=== PATIENT | female | born 1985 | race American Indian/Alaskan Native ===

== ENCOUNTER 2016-10-05 17:43 | Emergency (ER) | payer MEDICAID ==
--- NOTE | 2016-10-05 19:36 | Emergency Department Report ---
ED Female HPI - General Chief complaint: Urogenital-Female Stated complaint: ABD PAIN Time Seen by Provider: 10/05/16 19:21 Source: patient Mode of arrival: Ambulatory Limitations: No Limitations - History of Present Illness Initial comments: This is a 30-year-old female patient came in with abdominal pain and nausea. She reports that she is having pain in her pelvic area, urinary frequency and possibly UTI and this is been going on for 2 days. Her primary care doctor is Dr. Kwesi Bradshaw. Patient said that she is having clear vaginal discharge She denies any bleeding. Eyes any back pain. He says she's not concerned about STDs. She denies any fever or chills. MD Complaint: vaginal discharge, pelvic pain Onset/Timin -: days(s) Location: other (pelvic) Radiation: non-radiating Severity: mild Severity scale (0 -10): 6 Quality: cramping Consistency: intermittent Improves with: none Worsens with: none Are you Now?: No Last Menstrual Period: 09/21/16 EDC: 06/28/17 Associated Symptoms: vaginal discharge, abdominal pain, nausea/vomiting. denies : vaginal bleeding, fever/chills, headaches, loss of appetite, rash, seizure, shortness of breath, syncope, weakness - Related Data Sexually active: No Home Medications Medication Instructions Recorded Confirmed Last Taken ALBUTEROL NEB's [Proventil 0.083% 2.5 mg IH TID PRN 10/24/14 10/24/14 Unknown NEBS] Ferrous Sulfate [Feosol 325 MG tab] 325 mg PO QDAY 10/24/14 10/24/14 Unknown traMADol [Ultram 50 MG tab] 50 mg PO Q6HR PRN 10/24/14 10/24/14 Unknown Previous Rx's Medication Instructions Recorded Last Taken Type ALBUTEROL Inhaler [ProAir HFA 2 puff IH QID PRN #1 inha 04/10/15 Unknown Rx Inhaler] Azithromycin [Zithromax Z-ARIA] 250 mg PO DAILY #1 pkg 04/10/15 Unknown Rx Fluticasone/Salmeterol [Advair 1 each IH QDAY #1 disk.w.dev 04/10/15 Unknown Rx Diskus 250-50 mcg] methylPREDNISolone [Medrol Dose 4 mg PO QAM #1 pack 04/10/15 Unknown Rx Aria] Cetirizine HCl [ZyrTEC] 10 mg PO DAILY PRN #20 capsule 06/24/15 Unknown Rx Prednisone [predniSONE 10 mg 10 mg PO .TAPER #1 tab.ds.pk 06/24/15 Unknown Rx (6-Day Pack, 21 Tabs)] Naproxen [Naprosyn] 500 mg PO BID PRN #10 tablet 10/05/16 Unknown Rx Allergies Allergy/AdvReac Type Severity Reaction Status Date / Time No Known Allergies Allergy Verified 04/10/15 10:59 ED Review of Systems ROS: Stated complaint: ABD PAIN Other details as noted in HPI Comment: All other systems reviewed and negative Constitutional: denies: chills, fever ENT: denies: throat pain Respiratory: no symptoms reported Cardiovascular: denies: chest pain, palpitations, edema, syncope Gastrointestinal: abdominal pain, nausea. denies: vomiting, diarrhea, constipation, hematemesis, melena, hematochezia Genitourinary: frequency, discharge. denies: urgency, dysuria, hematuria, abnormal menses, dyspareunia Musculoskeletal: denies: back pain, joint swelling, arthralgia, myalgia Skin: denies: rash Neurological: denies: headache, numbness, paresthesias, abnormal gait, vertigo ED Past Medical Hx - Past Medical History Previous Medical History?: Yes Hx Asthma: Yes Additional medical history: Vaginal delivery x 2, PID - Surgical History Past Surgical History?: No - Family History Family history: hypertension - Social History Smoking Status: Never Smoker Substance Use Type: Non Opiate Pain - Medications Home Medications: Home Medications Medication Instructions Recorded Confirmed Last Taken Type ALBUTEROL NEB's [Proventil 0.083% 2.5 mg IH TID PRN 10/24/14 10/24/14 Unknown History NEBS] Ferrous Sulfate [Feosol 325 MG tab] 325 mg PO QDAY 10/24/14 10/24/14 Unknown History traMADol [Ultram 50 MG tab] 50 mg PO Q6HR PRN 10/24/14 10/24/14 Unknown History ALBUTEROL Inhaler [ProAir HFA 2 puff IH QID PRN #1 inha 04/10/15 Unknown Rx Inhaler] Azithromycin [Zithromax Z-ARIA] 250 mg PO DAILY #1 pkg 04/10/15 Unknown Rx Fluticasone/Salmeterol [Advair 1 each IH QDAY #1 disk.w.dev 04/10/15 Unknown Rx Diskus 250-50 mcg] methylPREDNISolone [Medrol Dose 4 mg PO QAM #1 pack 04/10/15 Unknown Rx Aria] Cetirizine HCl [ZyrTEC] 10 mg PO DAILY PRN #20 capsule 06/24/15 Unknown Rx Prednisone [predniSONE 10 mg 10 mg PO .TAPER #1 tab.ds.pk 06/24/15 Unknown Rx (6-Day Pack, 21 Tabs)] Naproxen [Naprosyn] 500 mg PO BID PRN #10 tablet 10/05/16 Unknown Rx ED Physical Exam - General Limitations: No Limitations General appearance: alert, in no apparent distress - Head Head exam: Present: atraumatic, normocephalic, normal inspection - Eye Eye exam: Present: normal appearance, PERRL, EOMI. Absent: periorbital swelling , periorbital tenderness Pupils: Present: normal accommodation - ENT ENT exam: Present: normal exam, normal orophraynx, mucous membranes moist, TM's normal bilaterally, normal external ear exam - Neck Neck exam: Present: normal inspection, full ROM. Absent: tenderness, lymphadenopathy - Respiratory Respiratory exam: Present: normal lung sounds bilaterally. Absent: respiratory distress, wheezes, rales, rhonchi, stridor, chest wall tenderness - Cardiovascular Cardiovascular Exam: Present: normal rhythm, tachycardia, normal heart sounds - GI/Abdominal GI/Abdominal exam: Present: soft, normal bowel sounds. Absent: distended, tenderness, guarding, rebound, rigid - External exam: Present: normal external exam Speculum exam: Present: normal speculum exam, vaginal discharge Bi-manual exam: Present: normal bi-manual exam. Absent: cervical motion tendernes, adnexal tenderness, adnexal mass, uterine enlargement, uterine tenderness - Extremities Exam Extremities exam: Present: normal inspection, full ROM, normal capillary refill. Absent: tenderness, pedal edema, joint swelling - Back Exam Back exam: Present: normal inspection, full ROM. Absent: tenderness, CVA tenderness (R), CVA tenderness (L), muscle spasm, paraspinal tenderness, vertebral tenderness, rash noted - Neurological Exam Neurological exam: Present: alert, oriented X3, normal gait, reflexes normal. Absent: motor sensory deficit - Psychiatric Psychiatric exam: Present: normal affect, normal mood - Skin Skin exam: Present: warm, dry, intact, normal color. Absent: rash ED Course Vital Signs 10/05/16 17:54 Temperature 98.6 F Pulse Rate 105 H Respiratory 20 Rate Blood Pressure 123/73 O2 Sat by Pulse 100 Oximetry Vital Signs 10/05/16 10/05/16 17:54 23:35 Temperature 98.6 F Pulse Rate 105 H 91 H Respiratory 20 18 Rate Blood Pressure 123/73 Blood Pressure 108/68 [Left] O2 Sat by Pulse 100 98 Oximetry - Reevaluation(s) Reevaluation #1: 10/05/16 21:26 Patient here with complaint of pelvic pain. Wet prep revealed no clue cells, no trichomonas or yeast cells. Patient does not want to be treated empirically for STD she wants to wait until her test comes back because she says she is not sexually active over the past 3 months. Patient awaiting in pelvic ultrasound. ED Medical Decision Making - Lab Data Result diagrams: 10/05/16 19:48 10/05/16 19:48 Lab Results 10/05/16 10/05/16 10/05/16 Range/Units 19:09 19:48 19:48 WBC 8.7 (4.5-11.0) K/mm3 RBC 4.59 (3.65-5.03) M/mm3 Hgb 11.3 (10.1-14.3) gm/dl Hct 34.3 (30.3-42.9) % MCV 75 L (79-97) fl MCH 25 L (28-32) pg MCHC 33 (30-34) % RDW 17.6 H (13.2-15.2) % Plt Count 305 (140-440) K/mm3 Lymph % (Auto) 27.9 (13.4-35.0) % Cass % (Auto) 7.5 H (0.0-7.3) % Eos % (Auto) 2.9 (0.0-4.3) % Baso % (Auto) 0.7 (0.0-1.8) % Lymph # 2.4 (1.2-5.4) K/mm3 Cass # 0.7 (0.0-0.8) K/mm3 Eos # 0.3 (0.0-0.4) K/mm3 Baso # 0.1 (0.0-0.1) K/mm3 Seg Neutrophils % 61.0 (40.0-70.0) % Seg Neutrophils # 5.3 (1.8-7.7) K/mm3 Sodium 141 (137-145) mmol/L Potassium 3.7 (3.6-5.0) mmol/L Chloride 103.2 (98-107) mmol/L Carbon Dioxide 25 (22-30) mmol/L Anion Gap 17 mmol/L BUN 9 (7-17) mg/dL Creatinine 0.8 (0.7-1.2) mg/dL Estimated GFR > 60 ml/min BUN/Creatinine Ratio 11.25 % Glucose 103 H (65-100) mg/dL Calcium 8.6 (8.4-10.2) mg/dL Lipase (13-60) units/L Urine Color Yellow (Yellow) Urine Turbidity Clear (Clear) Urine pH 5.0 (5.0-7.0) Ur Specific [place] 1.023 (1.003-1.030) Urine Protein 30 mg/dl (Negative) mg/dL Urine Glucose (UA) Neg (Negative) mg/dL Urine Ketones Neg (Negative) mg/dL Urine Blood Mod (Negative) Urine Nitrite Neg (Negative) Ur Reducing Substances Not Reportable Urine Bilirubin Neg (Negative) Urine Ictotest Not Reportable Urine Urobilinogen < 2.0 (<2.0) mg/dL Ur Leukocyte Esterase Neg (Negative) Urine WBC (Auto) 3.0 (0.0-6.0) /HPF Urine RBC (Auto) 4.0 (0.0-6.0) /HPF U Epithel Cells (Auto) 10.0 (0-13.0) /HPF Urine Mucus 2+ /HPF Urine HCG, Qual Negative (Negative) 10/05/16 Range/Units 19:48 WBC (4.5-11.0) K/mm3 RBC (3.65-5.03) M/mm3 Hgb (10.1-14.3) gm/dl Hct (30.3-42.9) % MCV (79-97) fl MCH (28-32) pg MCHC (30-34) % RDW (13.2-15.2) % Plt Count (140-440) K/mm3 Lymph % (Auto) (13.4-35.0) % Cass % (Auto) (0.0-7.3) % Eos % (Auto) (0.0-4.3) % Baso % (Auto) (0.0-1.8) % Lymph # (1.2-5.4) K/mm3 Cass # (0.0-0.8) K/mm3 Eos # (0.0-0.4) K/mm3 Baso # (0.0-0.1) K/mm3 Seg Neutrophils % (40.0-70.0) % Seg Neutrophils # (1.8-7.7) K/mm3 Sodium (137-145) mmol/L Potassium (3.6-5.0) mmol/L Chloride (98-107) mmol/L Carbon Dioxide (22-30) mmol/L Anion Gap mmol/L BUN (7-17) mg/dL Creatinine (0.7-1.2) mg/dL Estimated GFR ml/min BUN/Creatinine Ratio % Glucose (65-100) mg/dL Calcium (8.4-10.2) mg/dL Lipase 24 (13-60) units/L Urine Color (Yellow) Urine Turbidity (Clear) Urine pH (5.0-7.0) Ur Specific [place] (1.003-1.030) Urine Protein (Negative) mg/dL Urine Glucose (UA) (Negative) mg/dL Urine Ketones (Negative) mg/dL Urine Blood (Negative) Urine Nitrite (Negative) Ur Reducing Substances Urine Bilirubin (Negative) Urine Ictotest Urine Urobilinogen (<2.0) mg/dL Ur Leukocyte Esterase (Negative) Urine WBC (Auto) (0.0-6.0) /HPF Urine RBC (Auto) (0.0-6.0) /HPF U Epithel Cells (Auto) (0-13.0) /HPF Urine Mucus /HPF Urine HCG, Qual (Negative) Wet prep reveal no trichomoniasis, no yeast or clue cells Gonorrhea and chlamydia test is pending - Radiology Data Radiology results: report reviewed Pelvic ultrasound revealed left and right ovarian functional cysts otherwise unremarkable pelvic ultrasound - Medical Decision Making ED course: An here presented complaining of pelvic pain that started 2 days ago. She reports that she thought she had a urinary tract infection. Urinalysis negative for infection and . Pelvic ultrasound revealed cysts on both ovaries otherwise unremarkable pelvic ultrasound. This was communicated to patient and I told her she needs to follow-up with her primary care physician and possible [facility]. She has a primary care physician who is Dr. Kwesi Bradshaw. I instructed her to call to schedule an appointment for physical exam. Patient discharged home with prescription for naproxen. I also discussed with her wet prep results and told her that her gonorrhea and chlamydia tests will be back within 5 days. Patient has no concerns for STD. Critical care attestation.: If time is entered above; I have spent that time in minutes in the direct care of this critically ill patient, excluding procedure time. ED Disposition Clinical Impression: Pelvic pain, Ovarian cyst Disposition: TO HOME OR SELFCARE Is pt being admited?: No Does the pt Need Aspirin: No Condition: Stable Instructions: Abdominal Pain (ED), Ovarian Cyst (ED) Additional Instructions: Please follow-up with your primary care physician call tomorrow to schedule an appointment Please take naproxen as needed for pain. See referral to [facility] and call to schedule an appointment. Prescriptions: Naproxen [Naprosyn] 500 mg PO BID PRN #10 tablet PRN Reason: Pain Referrals: PRIMARY CARE, [Primary Care Provider] - 2-3 Days FREDDIE SONI MD [Staff Physician] - 2-3 Days Forms: Work/School Release Form(ED)
[2016-10-05 19:38] LABS: Bilirubin,Urine NEG (Negative); Blood,Urine MOD (Negative); Ketones,Urine NEG (Negative); Leukocyte Esterase,Urine NEG (Negative); Mucus,Urine 2+ /HPF; Nitrite,Urine NEG (Negative); Urobilinogen,Urine < 2.0 mg/dL (<2.0)
[2016-10-05 19:57] LABS: Basophils % (Auto) 0.7 % (0.0-1.8); Eosinophils % (Auto) 2.9 % (0.0-4.3); Hematocrit 34.3 % (30.3-42.9); Hemoglobin 11.3 gm/dl (10.1-14.3); Mean Corpuscular HGB Conc 33 % (30-34); Mean Corpuscular Volume 75 fl (79-97); Platelet Count 305 K/mm3 (140-440); Red Blood Count 4.59 M/mm3 (3.65-5.03); Red Cell Distribution Width 17.6 % (13.2-15.2); White Blood Count 8.7 K/mm3 (4.5-11.0)
[2016-10-05 19:58] LABS: Mean Corpuscular Hemoglobin 25 pg (28-32)
[2016-10-05 20:17] LABS: Anion Gap 17 mmol/L; BUN/Creatinine Ratio 11.25; Blood Urea Nitrogen 9 mg/dL (7-17); Calcium 8.6 mg/dL (8.4-10.2); Carbon Dioxide 25 mmol/L (22-30); Chloride 103.2 mmol/L (98-107); Glucose 103 mg/dL (65-100); Potassium 3.7 mmol/L (3.6-5.0); Sodium 141 mmol/L (137-145)
--- NOTE | 2016-10-05 22:33 | Ultrasound Report ---
FINAL REPORT EXAM: US PELVIC COMPLETE HISTORY: pelvic pain COMPARISONS: None. FINDINGS: Transabdominal grayscale and color doppler ultrasound evaluation of the pelvis Anteverted uterus measures 8.2 x 6 x 6.2 cm and demonstrates myometrial echotexture within normal limits and homogeneous endometrium approximately 10 millimeters in thickness. No significant free fluid in the pelvis. Ovaries demonstrate normal size and echotexture and measures 3.2 x 2.5 x 2.1 cm on the right and 3 x 2 x 3.4 cm on the left. Functional cysts are seen within both ovaries. IMPRESSION: Unremarkable pelvic ultrasound.
[2016-10-05 23:36] VITALS: BP 108/68
== END 2016-10-05 23:38 | disposition home or self-care (01) ==
LOC: ED 17:43
DX: N83.202 Unspecified ovarian cyst, left side (principal); N83.201 Unspecified ovarian cyst, right side; J45.909 Unspecified asthma, uncomplicated
CPT/HCPCS: 36415; 76856; 80048; 81001; 81025; 83690; 85025; 87210; 87591; 99284

== ENCOUNTER 2017-01-22 17:15 | Emergency (ER) | payer MEDICAID ==
[2017-01-22 17:22] VITALS: BP 123/82
--- NOTE | 2017-01-22 22:45 | Emergency Department Report ---
- General Chief complaint: Skin/Abscess/Foreign Body Stated complaint: BOIL IN GROIN Time Seen by Provider: 01/22/17 22:40 Source: patient Mode of arrival: Ambulatory Limitations: No Limitations - History of Present Illness Initial comments: 31 YO FEMALE WITH VAGINAL ABSCESS THAT BEGAN ONE WEEK AGO AFTER SHAVING. PT NOW STATES THAT IT POPPED SINCE SHE WAS SITTING AND WAITING TO BE SEEN. SHE NO LONGER WANTS AN I AND D OF THIS ABSCESS. complaint: abscess/boil -: Sudden, week(s) (1) Tetanus Up to Date: unsure Location: genitals Severity scale (0 -10): 7 Quality: aching Consistency: constant Improves with: immobilization Worsens with: movement Associated symptoms: other (DIFFICULTY WALKING) Treatments Prior to Arrival: none - Related Data Home Medications Medication Instructions Recorded Confirmed Last Taken ALBUTEROL NEB's [Proventil 0.083% 2.5 mg IH TID PRN 10/24/14 10/24/14 Unknown NEBS] Ferrous Sulfate [Feosol 325 MG tab] 325 mg PO QDAY 10/24/14 10/24/14 Unknown traMADol [Ultram 50 MG tab] 50 mg PO Q6HR PRN 10/24/14 10/24/14 Unknown Previous Rx's Medication Instructions Recorded Last Taken Type ALBUTEROL Inhaler [ProAir HFA 2 puff IH QID PRN #1 inha 04/10/15 Unknown Rx Inhaler] Azithromycin [Zithromax Z-ARIA] 250 mg PO DAILY #1 pkg 04/10/15 Unknown Rx Fluticasone/Salmeterol [Advair 1 each IH QDAY #1 disk.w.dev 04/10/15 Unknown Rx Diskus 250-50 mcg] methylPREDNISolone [Medrol Dose 4 mg PO QAM #1 pack 04/10/15 Unknown Rx Aria] Cetirizine HCl [ZyrTEC] 10 mg PO DAILY PRN #20 capsule 06/24/15 Unknown Rx Prednisone [predniSONE 10 mg 10 mg PO .TAPER #1 tab.ds.pk 06/24/15 Unknown Rx (6-Day Pack, 21 Tabs)] Naproxen [Naprosyn] 500 mg PO BID PRN #10 tablet 10/05/16 Unknown Rx Sulfamethoxazole/Trimethoprim 1 each PO BID #14 tablet 01/22/17 Unknown Rx [Bactrim Ds Tablet] oxyCODONE /ACETAMINOPHEN [Percocet 1 tab PO Q6HR PRN #14 tablet 01/22/17 Unknown Rx 5/325] Allergies Allergy/AdvReac Type Severity Reaction Status Date / Time No Known Allergies Allergy Verified 01/22/17 17:18 Abscess Boil HPI - HPI Chief Complaint: Skin/Abscess/Foreign Body Stated Complaint: BOIL IN GROIN Time Seen by Provider: 01/22/17 22:40 Duration: 1 Week Location: Other (VAGINAL) History: Yes Pain, Yes Purulent Drainage, No Fever, No Numbness, No Foreign Body , No Previous History, No Insect Bite Home Medications: Home Medications Medication Instructions Recorded Confirmed Last Taken ALBUTEROL NEB's [Proventil 0.083% 2.5 mg IH TID PRN 10/24/14 10/24/14 Unknown NEBS] Ferrous Sulfate [Feosol 325 MG tab] 325 mg PO QDAY 10/24/14 10/24/14 Unknown traMADol [Ultram 50 MG tab] 50 mg PO Q6HR PRN 10/24/14 10/24/14 Unknown Previous Rx's Medication Instructions Recorded Last Taken Type ALBUTEROL Inhaler [ProAir HFA 2 puff IH QID PRN #1 inha 04/10/15 Unknown Rx Inhaler] Azithromycin [Zithromax Z-ARIA] 250 mg PO DAILY #1 pkg 04/10/15 Unknown Rx Fluticasone/Salmeterol [Advair 1 each IH QDAY #1 disk.w.dev 04/10/15 Unknown Rx Diskus 250-50 mcg] methylPREDNISolone [Medrol Dose 4 mg PO QAM #1 pack 04/10/15 Unknown Rx Aria] Cetirizine HCl [ZyrTEC] 10 mg PO DAILY PRN #20 capsule 06/24/15 Unknown Rx Prednisone [predniSONE 10 mg 10 mg PO .TAPER #1 tab.ds.pk 06/24/15 Unknown Rx (6-Day Pack, 21 Tabs)] Naproxen [Naprosyn] 500 mg PO BID PRN #10 tablet 10/05/16 Unknown Rx Sulfamethoxazole/Trimethoprim 1 each PO BID #14 tablet 01/22/17 Unknown Rx [Bactrim Ds Tablet] oxyCODONE /ACETAMINOPHEN [Percocet 1 tab PO Q6HR PRN #14 tablet 01/22/17 Unknown Rx 5/325] Allergies/Adverse Reactions: Allergies Allergy/AdvReac Type Severity Reaction Status Date / Time No Known Allergies Allergy Verified 01/22/17 17:18 ED Review of Systems ROS: Stated complaint: BOIL IN GROIN Other details as noted in HPI Constitutional: denies: chills, fever Eyes: denies: eye pain, eye discharge, vision change ENT: denies: ear pain, throat pain Respiratory: denies: cough, shortness of breath, wheezing Cardiovascular: denies: chest pain, palpitations Endocrine: no symptoms reported Gastrointestinal: denies: abdominal pain, nausea, diarrhea Genitourinary: denies: urgency, dysuria, discharge Musculoskeletal: denies: back pain, joint swelling, arthralgia Skin: denies: rash, lesions Neurological: denies: headache, weakness, paresthesias Psychiatric: denies: anxiety, depression Hematological/Lymphatic: denies: easy bleeding, easy bruising ED Past Medical Hx - Past Medical History Hx Asthma: Yes Additional medical history: Vaginal delivery x 2, PID - Surgical History Past Surgical History?: No - Social History Smoking Status: Never Smoker Substance Use Type: None - Medications Home Medications: Home Medications Medication Instructions Recorded Confirmed Last Taken Type ALBUTEROL NEB's [Proventil 0.083% 2.5 mg IH TID PRN 10/24/14 10/24/14 Unknown History NEBS] Ferrous Sulfate [Feosol 325 MG tab] 325 mg PO QDAY 10/24/14 10/24/14 Unknown History traMADol [Ultram 50 MG tab] 50 mg PO Q6HR PRN 10/24/14 10/24/14 Unknown History ALBUTEROL Inhaler [ProAir HFA 2 puff IH QID PRN #1 inha 04/10/15 Unknown Rx Inhaler] Azithromycin [Zithromax Z-ARIA] 250 mg PO DAILY #1 pkg 04/10/15 Unknown Rx Fluticasone/Salmeterol [Advair 1 each IH QDAY #1 disk.w.dev 04/10/15 Unknown Rx Diskus 250-50 mcg] methylPREDNISolone [Medrol Dose 4 mg PO QAM #1 pack 04/10/15 Unknown Rx Aria] Cetirizine HCl [ZyrTEC] 10 mg PO DAILY PRN #20 capsule 06/24/15 Unknown Rx Prednisone [predniSONE 10 mg 10 mg PO .TAPER #1 tab.ds.pk 06/24/15 Unknown Rx (6-Day Pack, 21 Tabs)] Naproxen [Naprosyn] 500 mg PO BID PRN #10 tablet 10/05/16 Unknown Rx Sulfamethoxazole/Trimethoprim 1 each PO BID #14 tablet 01/22/17 Unknown Rx [Bactrim Ds Tablet] oxyCODONE /ACETAMINOPHEN [Percocet 1 tab PO Q6HR PRN #14 tablet 01/22/17 Unknown Rx 5/325] ED Physical Exam - General Limitations: No Limitations General appearance: alert, in no apparent distress - Head Head exam: Present: atraumatic, normocephalic - Eye Eye exam: Present: normal appearance - ENT ENT exam: Present: mucous membranes moist - Neck Neck exam: Present: normal inspection - Respiratory Respiratory exam: Present: normal lung sounds bilaterally. Absent: respiratory distress, wheezes - Cardiovascular Cardiovascular Exam: Present: regular rate, normal rhythm. Absent: systolic murmur, diastolic murmur, rubs, gallop - GI/Abdominal GI/Abdominal exam: Present: soft, normal bowel sounds. Absent: distended, tenderness, guarding, rebound - Rectal Rectal exam: Present: deferred - External exam: Present: swelling (LEFT LABIA MAJORA SWELLING) - Extremities Exam Extremities exam: Present: normal inspection, full ROM - Back Exam Back exam: Present: normal inspection - Neurological Exam Neurological exam: Present: alert, oriented X3 - Psychiatric Psychiatric exam: Present: normal affect, normal mood - Skin Skin exam: Present: warm, dry, intact, normal color. Absent: rash ED Course Vital Signs 01/22/17 17:18 Temperature 98.5 F Pulse Rate 106 H Respiratory 18 Rate Blood Pressure 123/82 O2 Sat by Pulse 97 Oximetry ED Medical Decision Making - Medical Decision Making LEFT LABIAL ABSCESS OPEN AND DRAINING PUS, I HELP TO SQUEEZE THE ABSCESS TO REMOVE MORE PUS , PT GIVEN GAUZE . SHE WISHES NOT TO HAVE THE I AND D BECAUSE IT IS NOW DRAINING. Critical care attestation.: If time is entered above; I have spent that time in minutes in the direct care of this critically ill patient, excluding procedure time. ED Disposition Clinical Impression: Left genital labial abscess Disposition: DC- TO HOME OR SELFCARE Is pt being admited?: No Does the pt Need Aspirin: No Condition: Stable Instructions: Abscess (ED) Additional Instructions: PLEASE TAKE WARM BATHS WITH EPSOM SALT AND USE WARM COMPRESSED TO THE ABSCESS SO THAT IT WILL CONTINUE DRAINING Prescriptions: oxyCODONE /ACETAMINOPHEN [Percocet 5/325] 1 tab PO Q6HR PRN #14 tablet PRN Reason: Pain Sulfamethoxazole/Trimethoprim [Bactrim Ds Tablet] 1 each PO BID #14 tablet Referrals: ZACKERY TOWNSEND MD [Primary Care Provider] - 3-5 Days
[2017-01-22] MEDS ORDERED: TORADOL IM ONE (23:07)
[2017-01-22] MEDS ORDERED: LIDOCAINE VISCOUS 2% PO ONE (23:10)
== END 2017-01-22 23:20 | disposition home or self-care (01) ==
LOC: ED 17:15
DX: N76.4 Abscess of vulva (principal); J45.909 Unspecified asthma, uncomplicated
CPT/HCPCS: 96372; 99282; J1885

== ENCOUNTER 2017-03-01 07:25 | Emergency (ER) | payer MEDICAID ==
[2017-03-01 07:44] VITALS: BP 131/72
[2017-03-01] MEDS: DELTASONE PO ONE (10:17)
--- NOTE | 2017-03-01 10:20 | Emergency Department Report ---
HPI - General Chief Complaint: Upper Respiratory Infection Time Seen by Provider: 03/01/17 10:10 - HPI HPI: She is a 31-year-old female who presents to ED complaining of asthma exacerbation that happened acutely today. She states she is out of her medication and took a breathing treatment that belonged to her son which helped give her some relief. Patient came in to the ED. She also admits mild intermittent coughing. Patient states pain is worsened by coughing. She denies fevers/chills/nausea/vomiting abdominal pain. ED Past Medical Hx - Past Medical History Hx Asthma: Yes Additional medical history: Vaginal delivery x 2, PID - Surgical History Past Surgical History?: No - Social History Smoking Status: Never Smoker Substance Use Type: None - Medications Home Medications: Home Medications Medication Instructions Recorded Confirmed Last Taken Type Ferrous Sulfate [Feosol 325 MG tab] 325 mg PO QDAY 10/24/14 10/24/14 Unknown History traMADol [Ultram 50 MG tab] 50 mg PO Q6HR PRN 10/24/14 10/24/14 Unknown History Azithromycin [Zithromax Z-YANNICK] 250 mg PO DAILY #1 pkg 04/10/15 Unknown Rx methylPREDNISolone [Medrol Dose 4 mg PO QAM #1 pack 04/10/15 Unknown Rx Yannick] Cetirizine HCl [ZyrTEC] 10 mg PO DAILY PRN #20 capsule 06/24/15 Unknown Rx Prednisone [predniSONE 10 mg 10 mg PO .TAPER #1 tab.ds.pk 06/24/15 Unknown Rx (6-Day Pack, 21 Tabs)] Naproxen [Naprosyn] 500 mg PO BID PRN #10 tablet 10/05/16 Unknown Rx Sulfamethoxazole/Trimethoprim 1 each PO BID #14 tablet 01/22/17 Unknown Rx [Bactrim Ds Tablet] oxyCODONE /ACETAMINOPHEN [Percocet 1 tab PO Q6HR PRN #14 tablet 01/22/17 Unknown Rx 5/325] ALBUTEROL Inhaler [ProAir HFA 2 puff IH QID PRN #1 inha 03/01/17 Unknown Rx Inhaler] ALBUTEROL NEB's [Proventil 0.083% 2.5 mg IH BID PRN #1 pack 03/01/17 Unknown Rx NEBS] Fluticasone/Salmeterol [Advair 1 each IH QDAY #1 disk.w.dev 03/01/17 Unknown Rx Diskus 250-50 mcg] guaiFENesin [Robitussin] 200 mg PO Q6HR #24 tablet 03/01/17 Unknown Rx predniSONE [Deltasone] 20 mg PO QDAY #4 tab 03/01/17 Unknown Rx ED Review of Systems ROS: Stated complaint: CHEST PAIN/SOB Other details as noted in HPI Constitutional: denies: chills, fever Eyes: denies: eye pain, eye discharge, vision change ENT: denies: ear pain, throat pain Respiratory: denies: cough, shortness of breath, wheezing Cardiovascular: denies: chest pain, palpitations Endocrine: no symptoms reported Gastrointestinal: denies: abdominal pain, nausea, diarrhea Genitourinary: denies: urgency, dysuria, frequency, discharge Musculoskeletal: denies: back pain, joint swelling, arthralgia Skin: denies: rash, lesions Neurological: denies: headache, weakness, paresthesias Psychiatric: denies: anxiety, depression Hematological/Lymphatic: denies: easy bleeding, easy bruising Physical Exam - Physical Exam Vital Signs: Vital Signs 03/01/17 07:38 Temperature 98.0 F Pulse Rate 98 H Respiratory 16 Rate Blood Pressure 131/72 O2 Sat by Pulse 99 Oximetry Physical Exam: GENERAL: Alert and oriented x3, no apparent distress, Normal Gait, atraumatic. HEAD: Head is normocephalic and a-traumatic. EYES: Extra ocular muscles are intact. Pupils are equal, round, and reactive to light and accommodation. EARS: symetrical, atraumatic, non tender, ear canal clear and moderate cerumen, tympanic membrance non inflamed. gross auditory nml bilaterally. NOSE: Nose symetrical, Nontender,Nares appeared normal. MOUTH:Mouth is well hydrated and without lesions. Tonsils nonerythematous or swollen, Uvula midline, Tongue not elevated. Mucous membranes are moist. Posterior pharynx clear, no exudate or lesions. Patent airways. NECK: Supple. Non edematous, No lymphadenopathy or thyromegaly. LUNGS: Symetrical with respiration, No wheezing, no rales or crackles, CTAB. Use of assessory muscles HEART: S1, S2 present, regular rate and rhythm without murmur, no rubs, no gallops. Non tender to palpation SKIN: Warm and dry, No lesions, No ulceration or induration present. ED Course Vital Signs 03/01/17 07:38 Temperature 98.0 F Pulse Rate 98 H Respiratory 16 Rate Blood Pressure 131/72 O2 Sat by Pulse 99 Oximetry ED Medical Decision Making - Radiology Data Radiology results: report reviewed, image reviewed cc: ANDREW HAAS Fluoro Time In Minutes: ROUTINE CHEST, TWO VIEWS: Cough, SOB. PA and lateral views demonstrate the heart and mediastinal contour to be of normal size and shape. The lungs are clear and fully expanded and the soft tissues and bony structures are normal. IMPRESSION: Normal study. Transcribed By: EMILI Dictated By: AMBER KHAN MD Electronically Authenticated By: AMBER KHAN MD Signed Date/Time: 03/01/17 1122 - Medical Decision Making 31-year-old female presents with asthma exacerbation. ED course: Patient received a breathing treatment in ED, prednisone, cough suppressant Patient states different much better after receiving treatment. Vital signs normalized patient is in no acute distress or respiratory distress. I discussed the patient that i will refill of her medications. Discussed the patient will follow up with primary care physician. I discussed the patient's symptoms worsen or should develop new symptoms to return to ED. Critical care attestation.: If time is entered above; I have spent that time in minutes in the direct care of this critically ill patient, excluding procedure time. ED Disposition Clinical Impression: Asthma exacerbation Qualifiers: Asthma severity: mild Asthma persistence: intermittent Qualified Code(s): J45.21 - Mild intermittent asthma with (acute) exacerbation Disposition: DC-01 TO HOME OR SELFCARE Is pt being admited?: No Does the pt Need Aspirin: No Condition: Stable Instructions: Asthma (ED), Acute Bronchitis (ED), Bronchospasm (ED) Additional Instructions: Follow-up with Primary care Physician. Take medication as prescribed. If worsening symptoms or you get new symptoms please return to ED immediately Prescriptions: ALBUTEROL Inhaler [ProAir HFA Inhaler] 2 puff IH QID PRN #1 inha PRN Reason: Shortness Of Breath ALBUTEROL NEB's [Proventil 0.083% NEBS] 2.5 mg IH BID PRN #1 pack PRN Reason: Cough Fluticasone/Salmeterol [Advair Diskus 250-50 mcg] 1 each IH QDAY #1 disk.w.dev guaiFENesin [Robitussin] 200 mg PO Q6HR #24 tablet predniSONE [Deltasone] 20 mg PO QDAY #4 tab Referrals: PRIMARY CARE, [Primary Care Provider] - 3-5 Days [facility] [Outside] - 3-5 Days [facility] [Outside] - 3-5 Days [facility] [Outside] - 3-5 Days Forms: Accompanied Note, Work/School Release Form(ED) Time of Disposition: 11:37
[2017-03-01] MEDS: PROVENTIL IH ONE (10:40)
--- NOTE | 2017-03-01 11:38 | XRay Report ---
ROUTINE CHEST, TWO VIEWS: Cough, SOB. PA and lateral views demonstrate the heart and mediastinal contour to be of normal size and shape. The lungs are clear and fully expanded and the soft tissues and bony structures are normal. IMPRESSION: Normal study.
== END 2017-03-01 12:05 | disposition home or self-care (01) ==
LOC: ED 07:25
DX: J45.21 Mild intermittent asthma with (acute) exacerbation (principal)
CPT/HCPCS: 71020; 93005; 93010; 94640; 99283; J7512

== ENCOUNTER 2017-08-06 18:51 | Emergency (ER) | payer MEDICAID ==
[2017-08-06 19:49] LABS: Basophils # (Auto) 0.1 K/mm3 (0.0-0.1); Basophils % (Auto) 1.2 % (0.0-1.8); Eosinophils # (Auto) 0.3 K/mm3 (0.0-0.4); Eosinophils % (Auto) 3.5 % (0.0-4.3); Hematocrit 34.6 % (30.3-42.9); Hemoglobin 11.6 gm/dl (10.1-14.3); Lymphocytes # (Auto) 2.8 K/mm3 (1.2-5.4); Lymphocytes % (Auto) 31.1 % (13.4-35.0); Mean Corpuscular HGB Conc 34 % (30-34); Mean Corpuscular Volume 71 fl (79-97); Monocytes # (Auto) 0.7 K/mm3 (0.0-0.8); Monocytes % (Auto) 7.8 % (0.0-7.3); Platelet Count 325 K/mm3 (140-440); Red Blood Count 4.88 M/mm3 (3.65-5.03); Red Cell Distribution Width 18.3 % (13.2-15.2)
[2017-08-06 19:56] LABS: Mean Corpuscular Hemoglobin 24 pg (28-32)
[2017-08-06 19:59] LABS: Alanine Aminotransferase 10 units/L (7-56); Albumin 3.8 g/dL (3.9-5); BUN/Creatinine Ratio 15; Blood Urea Nitrogen 12 mg/dL (7-17); Calcium 8.3 mg/dL (8.4-10.2); Hemolysis Index 0
[2017-08-06 22:18] LABS: Bilirubin,Urine NEG (Negative); Blood,Urine MOD (Negative); Color,Urine Yellow (Yellow); Mucus,Urine FEW /HPF; Protein,Urine <15 mg/dL mg/dL (Negative); Urobilinogen,Urine < 2.0 mg/dL (<2.0)
--- NOTE | 2017-08-06 22:54 | Emergency Department Report ---
HPI - General Chief Complaint: Abdominal Pain Time Seen by Provider: 08/06/17 22:40 - HPI HPI: Room 4 The patient is a 31-year-old female presenting with chief complaint abdominal pain. The patient states that today she's had intermittent lower abdominal pain as aching in nature. The patient states she's had urinary urgency in addition to dysuria. Denies hematuria or fever. Patient denies vaginal discharge. Patient does admit to chills. Location: Lower abdomen Duration: Intermittent 8-9 days Quality: Aching Severity: Moderate Modifying factors: [see above] Context: [see above] Mode of transportation: [not driving] ED Past Medical Hx - Past Medical History Previous Medical History?: Yes Hx Asthma: Yes Additional medical history: Vaginal delivery x 2, PID. laparoscopy - Surgical History Past Surgical History?: No - Family History Family history: no significant - Social History Smoking Status: Never Smoker Substance Use Type: None (denies illicit drug use) - Medications Home Medications: Home Medications Medication Instructions Recorded Confirmed Last Taken Type Ferrous Sulfate [Feosol 325 MG tab] 325 mg PO QDAY 10/24/14 10/24/14 Unknown History traMADol [Ultram 50 MG tab] 50 mg PO Q6HR PRN 10/24/14 10/24/14 Unknown History Azithromycin [Zithromax Z-ARIA] 250 mg PO DAILY #1 pkg 04/10/15 Unknown Rx methylPREDNISolone [Medrol Dose 4 mg PO QAM #1 pack 04/10/15 Unknown Rx Aria] Cetirizine HCl [ZyrTEC] 10 mg PO DAILY PRN #20 capsule 06/24/15 Unknown Rx Prednisone [predniSONE 10 mg 10 mg PO .TAPER #1 tab.ds.pk 06/24/15 Unknown Rx (6-Day Pack, 21 Tabs)] Naproxen [Naprosyn] 500 mg PO BID PRN #10 tablet 10/05/16 Unknown Rx Sulfamethoxazole/Trimethoprim 1 each PO BID #14 tablet 01/22/17 Unknown Rx [Bactrim Ds Tablet] oxyCODONE /ACETAMINOPHEN [Percocet 1 tab PO Q6HR PRN #14 tablet 01/22/17 Unknown Rx 5/325] ALBUTEROL Inhaler [ProAir HFA 2 puff IH QID PRN #1 inha 03/01/17 Unknown Rx Inhaler] ALBUTEROL NEB's [Proventil 0.083% 2.5 mg IH BID PRN #1 pack 03/01/17 Unknown Rx NEBS] Fluticasone/Salmeterol [Advair 1 each IH QDAY #1 disk.w.dev 03/01/17 Unknown Rx Diskus 250-50 mcg] guaiFENesin [Robitussin] 200 mg PO Q6HR #24 tablet 03/01/17 Unknown Rx predniSONE [Deltasone] 20 mg PO QDAY #4 tab 03/01/17 Unknown Rx Ciprofloxacin HCl [Ciprofloxacin 500 mg PO Q12H #14 tab 08/06/17 Unknown Rx TAB] Ibuprofen [Motrin 800 MG tab] 800 mg PO Q8HR PRN #20 tablet 08/06/17 Unknown Rx Phenazopyridine [Pyridium] 200 mg PO TID #6 tab 08/06/17 Unknown Rx traMADol [Ultram] 50 mg PO Q6HR PRN #10 tablet 08/06/17 Unknown Rx ED Review of Systems ROS: Stated complaint: ABDOMINAL PAIN Other details as noted in HPI Constitutional: chills. denies: fever Gastrointestinal: abdominal pain Genitourinary: urgency, dysuria. denies: hematuria, discharge Musculoskeletal: denies: back pain Physical Exam - Physical Exam Vital Signs: Vital Signs 08/06/17 19:28 Temperature 99 F Pulse Rate 87 Respiratory 18 Rate Blood Pressure 122/72 O2 Sat by Pulse 100 Oximetry Physical Exam: GENERAL: The patient is well-developed well-nourished female lying on stretcher not appearing to be in acute distress. [] HEENT: Normocephalic. Atraumatic. Extraocular motions are intact. Patient has moist mucous membranes. NECK: Supple. Trachea midline CHEST/LUNGS: Clear to auscultation. There is no respiratory distress noted. HEART/CARDIOVASCULAR: Regular. There is no tachycardia. There is no gallop rub or murmur. ABDOMEN: Abdomen is soft, and nontender to palpation in bilateral upper and lower quadrants. Patient with mild discomfort in the suprapubic region. There is no rebound.. Patient has normal bowel sounds. There is no abdominal distention. SKIN: There is no rash. There is no edema. There is no diaphoresis. NEURO: The patient is awake, alert, and oriented. The patient is cooperative. The patient has normal speech and gait MUSCULOSKELETAL: There is no CVA tenderness. There is no evidence of acute injury. ED Course Vital Signs 08/06/17 19:28 Temperature 99 F Pulse Rate 87 Respiratory 18 Rate Blood Pressure 122/72 O2 Sat by Pulse 100 Oximetry ED Medical Decision Making - Lab Data Result diagrams: 08/06/17 19:39 08/06/17 19:39 Laboratory Tests 08/06/17 08/06/17 08/06/17 19:39 19:39 21:39 WBC 8.9 RBC 4.88 Hgb 11.6 Hct 34.6 MCV 71 L MCH 24 L MCHC 34 RDW 18.3 H Plt Count 325 Lymph % (Auto) 31.1 [place] % (Auto) 7.8 H Eos % (Auto) 3.5 Baso % (Auto) 1.2 Lymph # 2.8 [place] # 0.7 Eos # 0.3 Baso # 0.1 Seg Neutrophils % 56.4 Seg Neutrophils # 5.0 Sodium 135 L Potassium 4.0 Chloride 99.6 Carbon Dioxide 23 Anion Gap 16 BUN 12 Creatinine 0.8 Estimated GFR > 60 BUN/Creatinine Ratio 15 Glucose 84 Calcium 8.3 L Total Bilirubin < 0.20 AST 15 ALT 10 Alkaline Phosphatase 79 Total Protein 7.5 Albumin 3.8 L Albumin/Globulin Ratio 1.0 Urine Color Yellow Urine Turbidity Clear Urine pH 5.0 Ur Specific [place] 1.021 Urine Protein <15 mg/dl Urine Glucose (UA) Neg Urine Ketones Neg Urine Blood Mod Urine Nitrite Neg Urine Bilirubin Neg Urine Urobilinogen < 2.0 Ur Leukocyte Esterase Mod Urine WBC (Auto) 14.0 H Urine RBC (Auto) 6.0 U Epithel Cells (Auto) 4.0 Urine Mucus Few - Differential Diagnosis UTI, pyelonephritis Critical care attestation.: If time is entered above; I have spent that time in minutes in the direct care of this critically ill patient, excluding procedure time. ED Disposition Clinical Impression: UTI (urinary tract infection), Acute abdominal pain Disposition: - TO HOME OR SELFCARE Is pt being admited?: No Does the pt Need Aspirin: No Condition: Stable Instructions: Abdominal Pain (ED), Dysuria (ED), Urinary Tract Infection in Women (ED) Additional Instructions: Return to the emergency department immediately should you develop worsening symptoms, fever, inability to tolerate food or liquid or any other concerns. Prescriptions: Ciprofloxacin HCl [Ciprofloxacin TAB] 500 mg PO Q12H #14 tab Ibuprofen [Motrin 800 MG tab] 800 mg PO Q8HR PRN #20 tablet PRN Reason: Pain Phenazopyridine [Pyridium] 200 mg PO TID #6 tab traMADol [Ultram] 50 mg PO Q6HR PRN #10 tablet PRN Reason: Pain Referrals: PRIMARY CAREMD [Primary Care Provider] - 3-5 Days BIRGIT PATIÑO MD [Staff Physician] - 3-5 Days [facility] [Outside] - 3-5 Days Time of Disposition: 22:54
[2017-08-07 02:52] VITALS: BP 121/76
== END 2017-08-06 23:05 | disposition home or self-care (01) ==
LOC: ED 18:51
DX: N39.0 Urinary tract infection, site not specified (principal); J45.909 Unspecified asthma, uncomplicated
CPT/HCPCS: 36415; 80053; 81001; 85025; 99283

== ENCOUNTER 2017-09-18 13:56 | Emergency (ER) | payer MEDICAID ==
[2017-09-18 14:08] VITALS: BP 134/80
--- NOTE | 2017-09-18 15:44 | Emergency Department Report ---
Chief Complaint: Abdominal Pain Stated Complaint: BACK PAIN/FREQUENT URINATION Time Seen by Provider: 09/18/17 15:38 - HPI History of Present Illness: 31-year-old [place] female presents to the emergency department with complaint of a one-week history of some lower back pain, increased urinary frequency and occasionally some mild dysuria. She has a history of a urinary tract infection back in August but says that she took the antibiotics to treat it compliantly. She denies any other past medical history. She has not taken anything for her symptoms prior to presentation. She denies any vaginal bleeding, vaginal discharge, fever. - ROS Review of Systems: Positive for back pain, increased urinary frequency, dysuria Negative for vaginal bleeding, vaginal discharge, hematuria, fever - Exam Vital Signs: Vital Signs 09/18/17 14:02 Temperature 98.5 F Pulse Rate 94 H Respiratory 18 Rate Blood Pressure 134/80 O2 Sat by Pulse 99 Oximetry Physical Exam: Heart and lungs sounds are normal auscultation. The patient is awake and alert and in no acute distress. There is no midline tenderness. She has some mild reproducible lumbar paraspinal tenderness to palpation. MSE screening note: Focused history and physical exam performed. Due to findings the following was ordered: She will have a urinalysis and urine test. ED Disposition for MSE Condition: Stable Instructions: Abdominal Pain (ED) Referrals: ZACKERY TOWNSEND [Other] - 3-5 Days
[2017-09-18 15:55] LABS: Bilirubin,Urine NEG (Negative); Blood,Urine NEG (Negative); Color,Urine Yellow (Yellow); Protein,Urine <15 mg/dL mg/dL (Negative); Urobilinogen,Urine < 2.0 mg/dL (<2.0)
[2017-09-18 16:02] LABS: HCG Qualitative,Urine Negative (Negative)
--- NOTE | 2017-09-18 17:00 | Emergency Department Report ---
ED Back Pain/Injury HPI - General Chief Complaint: Abdominal Pain Stated Complaint: BACK PAIN/FREQUENT URINATION Time Seen by Provider: 09/18/17 15:38 Source: patient Limitations: No Limitations - History of Present Illness Initial Comments: 31-year-old [place] female presents to the emergency department with complaint of a one-week history of bilateral low back pain, increased urinary frequency and occasionally mild dysuria. She has a history of a urinary tract infection back in August but says that she took the antibiotics to treat it compliantly. She denies any other past medical history. She has not taken anything for her symptoms prior to presentation. She denies any vaginal bleeding, vaginal discharge, and fever. MD Complaint: back pain -: week(s) (one week) Similar Symptoms Previously: Yes Place: home Radiation: none Severity: mild Severity scale (0 -10): 3 Quality: aching Consistency: intermittent Improves With: none Worsens With: movement, sitting upright Context: unknown Associated Symptoms: denies: confusion, weakness, chest pain, numbness, difficulty walking, cough, difficulty urinating, diaphoresis, incontinence, fever/chills, constipation, headaches, abdominal pain, loss of appetite, malaise , nausea/vomiting, rash, seizure, shortness of breath, syncope Treatments Prior to Arrival: NSAIDS - Related Data Home Medications Medication Instructions Recorded Confirmed Last Taken Ferrous Sulfate [Feosol 325 MG tab] 325 mg PO QDAY 10/24/14 10/24/14 Unknown traMADol [Ultram 50 MG tab] 50 mg PO Q6HR PRN 10/24/14 10/24/14 Unknown Previous Rx's Medication Instructions Recorded Last Taken Type Azithromycin [Zithromax Z-ARIA] 250 mg PO DAILY #1 pkg 04/10/15 Unknown Rx methylPREDNISolone [Medrol Dose 4 mg PO QAM #1 pack 04/10/15 Unknown Rx Aria] Cetirizine HCl [ZyrTEC] 10 mg PO DAILY PRN #20 capsule 06/24/15 Unknown Rx Prednisone [predniSONE 10 mg 10 mg PO .TAPER #1 tab.ds.pk 06/24/15 Unknown Rx (6-Day Pack, 21 Tabs)] Naproxen [Naprosyn] 500 mg PO BID PRN #10 tablet 10/05/16 Unknown Rx Sulfamethoxazole/Trimethoprim 1 each PO BID #14 tablet 01/22/17 Unknown Rx [Bactrim Ds Tablet] oxyCODONE /ACETAMINOPHEN [Percocet 1 tab PO Q6HR PRN #14 tablet 01/22/17 Unknown Rx 5/325] ALBUTEROL Inhaler [ProAir HFA 2 puff IH QID PRN #1 inha 03/01/17 Unknown Rx Inhaler] ALBUTEROL NEB's [Proventil 0.083% 2.5 mg IH BID PRN #1 pack 03/01/17 Unknown Rx NEBS] Fluticasone/Salmeterol [Advair 1 each IH QDAY #1 disk.w.dev 03/01/17 Unknown Rx Diskus 250-50 mcg] guaiFENesin [Robitussin] 200 mg PO Q6HR #24 tablet 03/01/17 Unknown Rx predniSONE [Deltasone] 20 mg PO QDAY #4 tab 03/01/17 Unknown Rx Ciprofloxacin HCl [Ciprofloxacin 500 mg PO Q12H #14 tab 08/06/17 Unknown Rx TAB] Ibuprofen [Motrin 800 MG tab] 800 mg PO Q8HR PRN #20 tablet 08/06/17 Unknown Rx Phenazopyridine [Pyridium] 200 mg PO TID #6 tab 08/06/17 Unknown Rx traMADol [Ultram] 50 mg PO Q6HR PRN #10 tablet 08/06/17 Unknown Rx Meloxicam [Mobic] 15 mg PO DAILY #30 tablet 09/18/17 Unknown Rx Allergies Allergy/AdvReac Type Severity Reaction Status Date / Time No Known Allergies Allergy Verified 01/22/17 17:18 ED Review of Systems ROS: Stated complaint: BACK PAIN/FREQUENT URINATION Other details as noted in HPI Constitutional: denies: chills, fever Respiratory: denies: cough, shortness of breath, wheezing Cardiovascular: denies: chest pain, palpitations Gastrointestinal: denies: abdominal pain, nausea, diarrhea Musculoskeletal: back pain (bilateral low back pain). denies: joint swelling, arthralgia Skin: denies: rash, lesions Neurological: denies: headache, weakness, paresthesias Psychiatric: denies: anxiety, depression ED Past Medical Hx - Past Medical History Vaginal delivery x 2, PID. laparoscopy Family history: no significant family history ED Back Pain Physical Exam - Exam General: Vital signs noted. No distress. Alert and acting appropriately. Back/Abdomen: Yes Sacroiliac Tenderness (bilaterally), No Abdominal Tenderness, No Perithoracic Tenderness, No Perilumbar Tenderness, No Flank Tenderness, No Straight Leg Raise Pain Neuro: Yes Normal Sensation, Yes Normal DTR's, Yes Normal Gait, No Motor Weakness ED Course Vital Signs 09/18/17 14:02 Temperature 98.5 F Pulse Rate 94 H Respiratory 18 Rate Blood Pressure 134/80 O2 Sat by Pulse 99 Oximetry Ed Back Pain Tests - Tests Tests: Normal UA ED Medical Decision Making - Medical Decision Making This is a 31 y.o. female presents with bilateral low back pain and frequency for one week. Patient was examined by me and Dr. Ford. Urinalysis, urine hCG, and fingerstick obtained. All within normal limits. Negative urine hCg. Physical findings susceptible of muscle strain. No radiograph obtained at this time. Will start meloxicam 15 mg by mouth daily for pain. Plan discussed with patient to discharge home and treat outpatient. She agrees with ER plan. Patient discharged home in stable condition. Follow up with PCP at [facility] in 2-3 days. Critical care attestation.: If time is entered above; I have spent that time in minutes in the direct care of this critically ill patient, excluding procedure time. ED Disposition Clinical Impression: Strain of muscle, fascia and tendon of lower back, initial encounter, H/O urinary frequency Disposition: TO HOME OR SELFCARE Is pt being admited?: No Does the pt Need Aspirin: No Condition: Stable Instructions: Low Back Strain (ED), Arthralgia (ED) Additional Instructions: Rest Use ice or heat on affected area for 20 minutes and off for 2 hours. Take pain medication as needed for pain. Follow up with Primary Care Provider at [facility] in 2-3 days. Prescriptions: Meloxicam [Mobic] 15 mg PO DAILY #30 tablet Referrals: ZACKERY TOWNSEND [Other] - 3-5 Days Time of Disposition: 17:28 Print Language: AZERBAIJANI
== END 2017-09-18 17:33 | disposition home or self-care (01) ==
LOC: ED 13:56
DX: S39.012A Strain of muscle, fascia and tendon of lower back, initial encounter (principal); X58.XXXA Exposure to other specified factors, initial encounter; Y93.9 Activity, unspecified; Y99.8 Other external cause status; Y92.89 Other specified places as the place of occurrence of the external cause
CPT/HCPCS: 81001; 81025; 82962; 99283

== ENCOUNTER 2018-09-01 07:22 | Emergency (ER) | payer MEDICAID ==
[2018-09-01 07:32] VITALS: BP 101/61
--- NOTE | 2018-09-01 08:25 | Emergency Department Report ---
HPI - General Chief Complaint: Abdominal Pain Time Seen by Provider: 09/01/18 07:44 - HPI HPI: 32 yo to ER today with dysuria. She gets frequent UTI's. [place] [facility] [place] told [place]. LMP 2 weeks ago. She has taken OTC pyridium and symptoms persist. No fever. NO back pain. No vaginal discharge. ED Past Medical Hx - Past Medical History Previous Medical History?: Yes Hx Asthma: Yes Additional medical history: Vaginal delivery x 2, PID. laparoscopy - Surgical History Past Surgical History?: No - Family History Family history: no significant - Social History Smoking Status: Never Smoker Substance Use Type: None - Medications Home Medications: Home Medications Medication Instructions Recorded Confirmed Last Taken Type Sulfamethoxazole/Trimethoprim 1 each PO BID #6 tablet 09/01/18 Unknown Rx [Bactrim DS TAB] ED Review of Systems ROS: Stated complaint: ABD PAIN Other details as noted in HPI Comment: All other systems reviewed and negative Physical Exam - Physical Exam Vital Signs: Vital Signs 09/01/18 07:27 Temperature 97.9 F Pulse Rate 85 Respiratory 16 Rate Blood Pressure 101/61 O2 Sat by Pulse 100 Oximetry General: - Head Head exam: Present: atraumatic, normocephalic - Eye Eye exam: Present: normal appearance, EOMI. Absent: nystagmus - ENT ENT exam: Present: normal exam, normal orophraynx, mucous membranes moist, normal external ear exam, no lymphadenopathy - Neck Neck exam: Present: normal inspection, full ROM. Absent: tenderness, meningismus - Respiratory Respiratory exam: Present: normal lung sounds bilaterally. Absent: respiratory distress, wheezes, rales, rhonchi, stridor, chest wall tenderness, accessory muscle use, decreased breath sounds, prolonged expiratory - Cardiovascular Cardiovascular Exam: Present: regular rate, normal rhythm, normal heart sounds. Absent: bradycardia, tachycardia, irregular rhythm, systolic murmur, diastolic murmur, rubs, gallop, JVD, edema - GI/Abdominal GI/Abdominal exam: Present: soft, non tender on light and deep palpation. Absent: distended, tenderness, guarding, rebound, rigid, pulsatile mass - Rectal Rectal exam: Present: deferred - Extremities Exam Extremities exam: Present: normal inspection, full ROM, other (2+ pulses noted in the bilateral upper extremities. Bilateral lower extremities with 2+ DP bilateral. Full ROM. Absent: calf tenderness - Back Exam Back exam: Present: normal inspection, full ROM. Absent: tenderness, CVA tenderness (R), CVA tenderness (L), paraspinal tenderness, vertebral tenderness - Neurological Exam Neurological exam: Present: alert, oriented X3, normal gait, other (Extraocular movements intact. Tongue midline. No facial droop. Facial sensation intact to light touch in the V1, V2, V3 distribution bilaterally. 5 and 5 strength in 4 extremities.. Sensation is intact to light touch in 4 extremities.). Absent: motor sensory deficit - Psychiatric Psychiatric exam: normal affect and mood - Skin Skin exam: Present: warm, dry, intact, normal color. Absent: rash ED Course Vital Signs 09/01/18 07:27 Temperature 97.9 F Pulse Rate 85 Respiratory 16 Rate Blood Pressure 101/61 O2 Sat by Pulse 100 Oximetry ED Medical Decision Making - Medical Decision Making Lab Results 09/01/18 Range/Units 08:15 Urine Color Yellow (Yellow) Urine Turbidity Slightly-cloudy (Clear) Urine pH 5.0 (5.0-7.0) Ur Specific [place] 1.028 (1.003-1.030) Urine Protein <15 mg/dl (Negative) mg/dL Urine Glucose (UA) Neg (Negative) mg/dL Urine Ketones Neg (Negative) mg/dL Urine Blood Neg (Negative) Urine Nitrite Neg (Negative) Ur Reducing Substances Not Reportable Urine Bilirubin Neg (Negative) Urine Ictotest Not Reportable Urine Urobilinogen < 2.0 (<2.0) mg/dL Ur Leukocyte Esterase Neg (Negative) Urine WBC (Auto) 1.0 (0.0-6.0) /HPF Urine RBC (Auto) 7.0 (0.0-6.0) /HPF U Epithel Cells (Auto) 16.0 H (0-13.0) /HPF Urine Bacteria (Auto) 1+ (Negative) /HPF Urine Mucus 3+ /HPF Urine HCG, Qual Negative (Negative) Vital Signs 09/01/18 07:27 Temperature 97.9 F Pulse Rate 85 Respiratory 16 Rate Blood Pressure 101/61 O2 Sat by Pulse 100 Oximetry Discussed with pt urine findings. She has taken pyridium OTC. Will treat for UTI and pt will follow up with obgyn. VSS. no fever. taking PO. ambulatory. Critical care attestation.: If time is entered above; I have spent that time in minutes in the direct care of this critically ill patient, excluding procedure time. ED Disposition Clinical Impression: Dysuria Disposition: DC-01 TO HOME OR SELFCARE Is pt being admited?: No Does the pt Need Aspirin: No Condition: Stable Instructions: Dysuria (ED) Additional Instructions: DIET TOLERATED MEDS ORDERED TODAY IN ER FOLLOW INSTRUCTIONS ON THE BOTTLE FOLLOW UP PCP WITHIN 48 HOURS TO ENSURE YOU ARE GETTING BETTER ACTIVITY TOLERATED MOTRIN OR TYLENOL FOR PAIN OR FEVER RETURN TO THE ER FOR WORSENING SYMPTOMS NOT RELIEVED BY YOUR MEDICATIONS. Prescriptions: Sulfamethoxazole/Trimethoprim [Bactrim DS TAB] 1 each PO BID #6 tablet Referrals: ZACKERY TOWNSEND MD [Primary Care Provider] - 3-5 Days JASBIR DARDEN MD [Staff Physician] - 3-5 Days Time of Disposition: 08:52
[2018-09-01 08:30] LABS: HCG Qualitative,Urine Negative (Negative)
[2018-09-01 08:38] LABS: Bacteria,Urine 1+ /HPF (Negative); Bilirubin,Urine NEG (Negative); Blood,Urine NEG (Negative); Color,Urine Yellow (Yellow); Mucus,Urine 3+ /HPF; Protein,Urine <15 mg/dL mg/dL (Negative); Urobilinogen,Urine < 2.0 mg/dL (<2.0)
== END 2018-09-01 09:01 | disposition home or self-care (01) ==
LOC: ED 07:22
DX: R30.0 Dysuria (principal); J45.909 Unspecified asthma, uncomplicated
CPT/HCPCS: 81001; 81025; 99283

== ENCOUNTER 2020-07-27 10:32 | Emergency (ER) | payer MEDICAID ==
[2020-07-27 10:50] VITALS: BP 131/81
[2020-07-27] MEDS ORDERED: IBUPROFEN 800 MG TAB PO ONE (11:22)
--- NOTE | 2020-07-27 11:45 | Emergency Department Report ---
<BERTA MCCAULEY - Last Filed: 07/27/20 12:53> ED Back Pain/Injury HPI - General Chief Complaint: Back Pain/Injury Stated Complaint: BACK PAIN Time Seen by Provider: 07/27/20 11:20 Source: patient Limitations: No Limitations - History of Present Illness Initial Comments: 34-year-old female complaining of lower back pain x2 weeks associated with urina ry frequency and lower abdominal pressure and chills. She denies any falls or injuries states that she is not she has a 9-month-old child at home. She denies any vaginal discharge .nausea no vomiting no abdominal pain patient also states she was treated for urinary tract infection about a month ago. MD Complaint: back pain -: week(s) Similar Symptoms Previously: Yes Place: home Quality: aching Consistency: constant Improves With: none Worsens With: none Associated Symptoms: denies other symptoms - Related Data Previous Rx's Medication Instructions Recorded Last Taken Type Sulfamethoxazole/Trimethoprim 1 each PO BID #6 tablet 09/01/18 Unknown Rx [Bactrim DS TAB] Ibuprofen [Motrin] 800 mg PO Q8HR PRN #21 tablet 07/27/20 Unknown Rx Allergies Allergy/AdvReac Type Severity Reaction Status Date / Time No Known Allergies Allergy Verified 09/01/18 07:23 ED Review of Systems Constitutional: no symptoms reported Respiratory: no symptoms reported Cardiovascular: denies: chest pain, palpitations Genitourinary: urgency, dysuria, frequency Musculoskeletal: back pain Skin: denies: rash, lesions Neurological: denies: headache, weakness, numbness, paresthesias, confusion, abn ormal gait ED Past Medical Hx - Past Medical History Previous Medical History?: Yes Hx Asthma: Yes Additional medical history: Vaginal delivery x 2, PID. laparoscopy - Surgical History Past Surgical History?: No - Social History Smoking Status: Never Smoker Substance Use Type: None - Medications Home Medications: Home Medications Medication Instructions Recorded Confirmed Last Taken Type Sulfamethoxazole/Trimethoprim 1 each PO BID #6 tablet 09/01/18 Unknown Rx [Bactrim DS TAB] Ibuprofen [Motrin] 800 mg PO Q8HR PRN #21 tablet 07/27/20 Unknown Rx ED Physical Exam - General Limitations: No Limitations General appearance: alert, in no apparent distress - Head Head exam: Present: atraumatic - Eye Eye exam: Present: normal appearance - ENT ENT exam: Present: normal exam - Neck Neck exam: Present: normal inspection - Respiratory Respiratory exam: Present: normal lung sounds bilaterally - Cardiovascular Cardiovascular Exam: Present: regular rate, normal heart sounds - GI/Abdominal GI/Abdominal exam: Present: soft. Absent: distended, tenderness - Extremities Exam Extremities exam: Present: normal inspection, normal capillary refill - Back Exam Back exam: Present: normal inspection, paraspinal tenderness. Absent: vertebral tenderness - Neurological Exam Neurological exam: Present: alert, oriented X3 - Psychiatric Psychiatric exam: Present: normal affect - Skin Skin exam: Present: warm, dry, intact, normal color ED Course - Reevaluation(s) Reevaluation #1: 07/27/20 12:56 Patient in no distress acute distress awaiting lab and urine results ED Medical Decision Making - Lab Data Result diagrams: 07/27/20 11:32 07/27/20 11:32 Critical Care Time: No ED Disposition Disposition: DC-01 TO HOME OR SELFCARE Is pt being admited?: No Does the pt Need Aspirin: No Condition: Stable Instructions: Lumbar Sprain Additional Instructions: Rest apply warm compress to your lower back. Take ibuprofen for pain as prescribed. Follow-up with your primary care doctor in 3 to 5 days. Consider yoga or joint gentle stretching exercise. Prescriptions: Ibuprofen [Motrin] 800 mg PO Q8HR PRN #21 tablet PRN Reason: Pain, Moderate (4-6) Referrals: [facility] [Other] - 3-5 Days <ALEX KRAUS - Last Filed: 07/27/20 13:11> ED Review of Systems ROS: Stated complaint: BACK PAIN Other details as noted in HPI ED Course Vital Signs 07/27/20 07/27/20 10:49 11:48 Temperature 98.6 F Pulse Rate 92 H Respiratory 18 20 Rate Blood Pressure 131/81 [Right] O2 Sat by Pulse 100 Oximetry ED Medical Decision Making - Lab Data Result diagrams: 07/27/20 11:32 07/27/20 11:32 Lab Results 07/27/20 07/27/20 07/27/20 Range/Units 11:32 11:32 12:03 WBC 8.1 (4.5-11.0) K/mm3 RBC 5.04 H (3.65-5.03) M/mm3 Hgb 13.0 (10.1-14.3) gm/dl Hct 37.5 (30.3-42.9) % MCV 74 L (79-97) fl MCH 26 L (28-32) pg MCHC 35 H (30-34) % RDW 16.9 H (13.2-15.2) % Plt Count 267 (140-440) K/mm3 Sodium 136 L (137-145) mmol/L Potassium 4.0 (3.6-5.0) mmol/L Chloride 105.1 (98-107) mmol/L Carbon Dioxide 26 (22-30) mmol/L Anion Gap 9 mmol/L BUN 13 (7-17) mg/dL Creatinine 0.9 (0.6-1.2) mg/dL Estimated GFR > 60 ml/min BUN/Creatinine Ratio 14 % Glucose 93 (65-100) mg/dL Calcium 8.6 (8.4-10.2) mg/dL Urine Color Yellow (Yellow) Urine Turbidity Clear (Clear) Urine pH 7.0 (5.0-7.0) Ur Specific [place] 1.024 (1.003-1.030) Urine Protein <15 mg/dl (Negative) mg/dL Urine Glucose (UA) Neg (Negative) mg/dL Urine Ketones Neg (Negative) mg/dL Urine Blood Neg (Negative) Urine Nitrite Neg (Negative) Urine Bilirubin Neg (Negative) Urine Urobilinogen 2.0 (<2.0) mg/dL Ur Leukocyte Esterase Neg (Negative) Urine WBC (Auto) 1.0 (0.0-6.0) /HPF Urine RBC (Auto) 2.0 (0.0-6.0) /HPF U Epithel Cells (Auto) 5.0 (0-13.0) /HPF Urine Mucus Few /HPF Urine HCG, Qual Negative (Negative) Critical care attestation.: If time is entered above; I have spent that time in minutes in the direct care of this critically ill patient, excluding procedure time.
[2020-07-27 12:13] LABS: Hematocrit 37.5 % (30.3-42.9); Mean Corpuscular HGB Conc 35 % (30-34); Mean Corpuscular Volume 74 fl (79-97); Platelet Count 267 K/mm3 (140-440); Red Blood Count 5.04 M/mm3 (3.65-5.03); Red Cell Distribution Width 16.9 % (13.2-15.2)
[2020-07-27 12:17] LABS: Bilirubin,Urine NEG (Negative); Blood,Urine NEG (Negative); Color,Urine Yellow (Yellow); Mucus,Urine FEW /HPF; Protein,Urine <15 mg/dL mg/dL (Negative)
[2020-07-27 12:34] LABS: HCG Qualitative,Urine Negative (Negative)
[2020-07-27 12:45] LABS: BUN/Creatinine Ratio 14; Blood Urea Nitrogen 13 mg/dL (7-17); Calcium 8.6 mg/dL (8.4-10.2); Hemolysis Index 1
== END 2020-07-27 13:11 | disposition home or self-care (01) ==
LOC: ED 10:32
DX: M54.5 Low back pain (principal); R35.0 Frequency of micturition; J45.909 Unspecified asthma, uncomplicated; Z79.1 Long term (current) use of non-steroidal anti-inflammatories (NSAID); Z79.899 Other long term (current) drug therapy
CPT/HCPCS: 36415; 80048; 81001; 81025; 85027